=== PATIENT | male | born 1950 | race Caucasian/White ===

== ENCOUNTER 2023-03-13 09:03 | Day surgery (SDC) | payer MEDICARE, OTHER, SELFPAY ==
[2023-03-13] VITALS (7 sets, daily range): BP systolic 121–131; BP diastolic 68–83; PULSE 60–73; RESP 16; TEMP 36.6–37.1; O2SAT 94–97; BMI 42.9
--- NOTE | 2023-03-13 09:29 | SUR.PREOP ---
SAME DAY SURGERY LOCAL INJECTION SITE VERIFICATION WAS PERFORMED BY SURGEON/PA AND PATIENT PRIOR TO LOCAL ANESTHETIC BEING INJECTED TO OPERATIVE SITE.
[2023-03-13] MEDS: ETHYL CHLORIDE 1 APPLICATION 1 APPLIC TOPICAL (09:30)
[2023-03-13] MEDS: BUPIVACAINE 0.5% 30 ML INJECTION (09:30)
--- NOTE | 2023-03-13 10:21 | P.ORPRC_ITS ---
Procedure Note Date of procedure: 03/13/23 Procedure: PREOPERATIVE DIAGNOSIS: 1. Right carpal tunnel syndrome POSTOPERATIVE DIAGNOSIS: 1. Right carpal tunnel syndrome PROCEDURE: 1. Right open carpal tunnel release SURGEON: Rick Ulloa MD. DRIVEMATIC MACHINE OPERATOR: HUY Zee ANESTHESIA: Local anesthetic (50:50 mixture of 2% lidocaine with epi and 0.5% marcaine plain) - 10ml total IMPLANTS: None EBL: 2 mL TOURNIQUET: None COMPLICATIONS: None evident INDICATIONS: The patient is a pleasant 72yo Male who has experienced right hand numbess/tingling affecting the radial 3.5 digits for multiple months. It has progressively gotten worse. Nonoperative management has been tried and failed, and therefore surgery was recommended. DESCRIPTION OF PROCEDURE: Following a thorough discussion of risks, benefits, and alternatives consent was obtained and the operative extremity was marked. The patient was brought to the operating room and placed supine on the operating table. Local anesthesia induction was undertaken in preop holding. No antibiotics were administered as this was planned to be a local case only. Proper time-out was performed identifying proper patient, site, and procedure. The operative extremity was prepped and draped in the appropriate sterile fas hion using ChloraPrep. An incision was made in line with the radial border of the ring finger beginning 1 cm distal to the distal wrist crease and progressing for another 2.5cm distal. Caution was taken to stay proximal to Garcia's cardinal line. Sharp incision through the skin, subcutaneous tissue, and palmar fascia was performed. The thenar musculature was bluntly elevated off the transverse carpal ligament. The ligament was directly visualized, and divided sharply with a 15 blade. This was released from its most proximal to the most distal extent. Metzenbaum scissor was also utilized to release the fascia extension proximally. We confirmed complete release of the transverse carpal ligament. Closure was performed with 4-O nylon in interrupted fashion. Soft dressings were applied, and the patient was transferred to the recovery room in stable condition. PLAN: 1. Encourage elevation of the operative extremity. 2. Range of motion of the fingers and hand/wrist as tolerated. 3. Ibuprofen/acetaminophen and/or Percocet as needed for pain control. 4. Follow up with PA visit or nurse visit in 12-16 days for wound check and suture removal.
== END 2023-03-13 10:58 | disposition home or self-care (01) ==
PROVIDERS: PCP Family Medicine; Visit Provider Orthopaedic Surgery Sports Medicine
PROC: (CPT 64721; principal; 2023-03-13 10:30)
DX: G56.01 Carpal tunnel syndrome, right upper limb (principal)
CPT/HCPCS: 64721; J0665

== ENCOUNTER 2023-05-20 10:04 | Day surgery (SDC) | payer MEDICARE, OTHER, SELFPAY ==
[2023-05-20] VITALS (22 sets, daily range): BP systolic 106–182; BP diastolic 52–99; PULSE 52–93; RESP 14–18; TEMP 36.1–37.5; O2SAT 90–97; BMI 43.2
[2023-05-20] MEDS: ACETAMINOPHEN 500 MG TABLET 1000 MG PO ×3 (10:20→23:36)
[2023-05-20] MEDS: OXYCODONE (CR) 10 MG TAB.ER.12H PO (10:20)
[2023-05-20] MEDS: SODIUM CHLORIDE 0.9 % (FLUSH) 10 ML SYRINGE IVF (10:25)
[2023-05-20] MEDS: LACTATED RINGERS 1000 ML 1,000 ML 100 ML IV ×2 (10:25→13:04)
--- NOTE | 2023-05-20 11:15 | XR_ITS ---
Final Report Patient: DERIC RACHEL Facility:?[facility] Patient ID:?[id number] Site Patient ID:?[id number]. Site :?[id number] Study:?XRay Hip Right INTRAOP-05/20/2023 5:52:01 PM Ordering Physician:MAREK Final Report: Indication: Hip replacement surgery Technique: AP hip fluoroscopic image. Fluoroscopy time 73.2 seconds. Findings/Impression: Hardware from a right total hip arthroplasty is in satisfactory position. Dictated by Deric Gutierrez MD @ 05/24/2023 6:25:55 AM (Electronic Signature)
[2023-05-20] MEDS: fentaNYL 100 MCG/2 ML inj IVP (12:20)
[2023-05-20] MEDS: MIDAZOLAM HCL 1 MG/ML inj IVP (12:20)
--- NOTE | 2023-05-20 12:37 | SUR.PREOP ---
TIME?OUT:?1220 PT/bing RN/mihaela bermudez MDA?VERIFICATION?OF?SURGICAL?SITE,?PROCEDURE,?AND?CONSENT OBTAINED?PRIOR?TO?INVASIVE?PROCEDURE.
[2023-05-20] MEDS: CEFAZOLIN 2 GM in 0.9 % SODIUM CHLORIDE Mini-bag 100 ML IVPB ×2 (12:40→19:07)
--- NOTE | 2023-05-20 12:42 | XR_ITS ---
Final Report Patient: DERIC RACHEL Facility:?[facility] Patient ID:?[id number] Site Patient ID:?[id number]. Site :?[id number] Study:?XRay Hip Right POST OP-05/20/2023 5:53:30 PM Ordering Physician:MAREK Final Report: Indication: Postop Technique: AP hip centered pelvis and lateral view right hip Findings/Impression: Hardware from a right total hip arthroplasty is in satisfactory position. Bone alignment is normal. No sign of acute fracture. Postop changes are within normal limits. Dictated by Deric Gutierrez MD @ 05/24/2023 6:26:42 AM (Electronic Signature)
[2023-05-20] MEDS: TRANEXAMIC ACID 100 MG/ML INJ 1000 MG IV (12:45)
--- NOTE | 2023-05-20 13:07 | P.NB_ITS ---
Nerve Block Nerve Block Time Seen by Provider: 12:30 Date Seen: 05/20/23 Type of block requested by surgeon for post-operative analgesia: ZACHERY/LFCN Side: right Time out performed: Yes Verification of patient name: Yes Verification of date of : Yes Site marking: site marked Name of person performing procedure: Massimo Continuous monitoring Was continuous monitoring of O2 sat, B/P, cafeteria monitor, recorded every 15 minutes?: Yes Procedure Checklist: sterile prep, needles and gloves Ultrasound guided. Images saved: Yes Medications given in 5ml increments after negative aspiration: Ropivicaine %: 0.5 mL: 30 Needle gauge: 20 Decadron (mg): 10 Precedex (mcg): 25 Patient tolerated procedure well: Yes Additional comments: Needle noted below psoas tendon needle noted adjacent to LFCN Block Charges Block Charge (with Pro Fee): Other Periph Nerve Block Use of Ultrasound Machine for Block: Yes- US Guidance/pain block
--- NOTE | 2023-05-20 13:07 | W.ANESCHARGE ---
Anesthesia Charges Start Date/Time Anesthesia Start Date: 05/20/23 Anesthesia Start Time: 12:37 Stop Date/Time Anesthesia Stop Date: 05/20/23 Anesthesia Stop Time: 15:57 Summary Extremes of Age - Over 70 or under 1: MDA
--- NOTE | 2023-05-20 16:11 | PM.ORPRC ---
Procedure Note Date of procedure: 05/20/23 Procedure: PREOPERATIVE DIAGNOSIS: 1. Right hip osteoarthritis, severe, primary 2. Morbidly obese-BMI 43.3 POSTOPERATIVE DIAGNOSIS: 1. Right hip osteoarthritis, severe, primary 2. Morbidly obese-BMI 43.3 PROCEDURE: 1. Right total hip arthroplasty-anterior approach-modifier 22 (33% added time and difficulty for this right KIN due to patient's morbidly obese body habitus which required increased assistants and deeper/more numerous retractors 2. 43307 - intraoperative fluoroscopy up to 1 hour. SURGEON: Rick Ulloa MD. WEAVE ROOM SUPERVISOR: Gabo Orona PA-C; Stephanie Small PA-C - Of note, a skilled payroll human resources assistant was critical for this case to aid in patient positioning, tissue retraction, limb manipulation/positioning, and closure. ANESTHESIA: General endotracheal anesthetic EBL: 600 mL IMPLANTS: DePuy J&J uncemented total hip [place] cup size 52, hole eliminator, +4 neutral liner Actis stem, standard offset, size 5 +12 mm ceramic 36 mm head COMPLICATIONS: None evident INDICATIONS: The patient is a pleasant 73-year-old male who has experienced severe right hip pain and difficulty bearing weight. Workup included x-rays which revealed severe osteoarthrosis in the hip. Given the deformity, the dysfunction, and the pain, as well as the failure of nonoperative management, recommendation was made for surgery. FINDINGS: Full-thickness chondral loss diffusely throughout the femoral head and acetabulum. Abundant effusion upon entering the joint. Large soft tissue envelope making exposure and access for KIN implantation significantly difficult. DESCRIPTION OF PROCEDURE: Following a thorough discussion of risks, benefits, and alternatives consent was obtained and the right hip was marked. The patient was brought to the operating room and placed supine on the operating table. Induction of anesthesia was undertaken. 2 g IV Ancef and 1 g tranexamic acid was administered within 1 hr of incision preoperatively. Proper time-out was performed identifying proper patient, site, procedure. The operative extremity was prepped and draped in the appropriate sterile fashion using ChloraPrep after the patient was positioned on the [place] table with head in neutral alignment and all bony prominences well padded. C-arm fluoroscopic imaging was utilized to confirm proper pelvis rotation and position, and to get true AP films of both the contralateral left, and the affected right hip. This is for comparison. A longitudinal incision was made starting approximately 1 cm distal to the ASIS, and 3-4 cm lateral. The incision was extended distally aiming toward the lateral border the patella. Sharp incision through skin and bovie cautery through the subcutaneous tissue allowed identification of the TFL fascia. This was sharply divided, and the fascia bluntly released from the muscle fibers as we dissected medial. Upon coming to the medial border, we were able to retract the TFL laterally, and penetrated the deeper fascia and identify the crossing circumflex vessels. These were ligated/cauterized. The rectus was elevated from the capsule, and retractors placed laterally and medially along the femoral neck to help with visualization of the capsule. We then performed an inverted T capsulotomy. The capsule was tagged for later repair. Retractors were placed inside the capsule. The femoral neck was visualized after releasing medially down to the lesser trochanter, along the saddle laterally, and up onto the acetabulum. The femoral neck cut was made in line with our preoperative templating. The head was removed in a single piece, and sized. We turned our attention to acetabular preparation. Initially, the labrum was resected from around the perimeter, the pulvinar was excised, allowing us to visualize the false wall. We started the reaming with a 43 mm reamer. This was medialized down to the true wall. We then enlarged our reamers sequentially up to one size less than the selected cup size. We trialed at the same size and found it to have an excellent fit. The selected cup was then opened, inserted, and impacted in line with the goal of 40? of abduction, and 20-25? of anteversion. This was confirmed on C-arm fluoroscopic imaging to be in the appropriate/goal position. Once the cup was placed we placed a hole eliminator and a liner consistent with preop planning. Attention was turned to the femoral preparation. The limb was extended, externally rotated, and adducted. The posteromedial capsule was released, as retractors were placed allowing excellent access to the proximal femur. Initially a icebox worker was followed by canal finder followed by various broaches. We broached sequentially up to the size noted above, found it to have excellent rotational control, and trialing various heads and necks, revealed that appropriate neck offset, and the above noted head size provided the greatest stability, and episcopalian of length, and offset. C-arm fluoroscopic imaging confirmed position of the stem, as well as leg lengths, which were compared with the pre procedure all fluoroscopic images. Trial implants were removed, the real femoral stem inserted, as was the appropriate head. After reducing, the leg was placed through range of motion and stability was confirmed anterior, posterior, and lateral. A 3 min Betadine soak was then performed, and thorough irrigation with normal saline followed. Closure of the capsule was performed with #1 PDS. Bleeding was confirmed to be controlled at this stage, and the TFL fascia was closed with #0 strata fix. Subcutaneous, and subcuticular closure was performed with 2-0 Vicryl and 4-0 Monocryl, respectively. Dressings were applied, and the patient was awoken from anesthesia and transferred the PACU in stable condition. Multiple skilled assistants were critical for this case to aid in patient positioning, tissue retraction, acetabular and proximal femoral exposure, limb manipulation/positioning, dislocation/relocation, patient safety, and closure due to morbid obese body habitus. Again, 33% at the time and difficulty for this right KIN due to patient's morbidly obese body habitus requiring increased assistants and deeper/more numerous retractors. PLAN: 1. Weight bear as tolerated operative extremity. 2. 23 hr perioperative antibiotics. 3. Ice. 4. PT/OT consults for ambulation assistance/mobility education. 5. Social work consult for discharge planning. 6. DVT prophylaxis with at SCDs, Kike Cadet, and Xarelto x5 days followed by aspirin for a total of 1 month..
--- NOTE | 2023-05-20 16:27 | W.ANESCHARGE ---
Anesthesia Charges Start Date/Time Anesthesia Start Date: 05/20/23 Anesthesia Start Time: 12:37 Stop Date/Time Anesthesia Stop Date: 05/20/23 Anesthesia Stop Time: 15:57
[2023-05-20] MEDS: LACTATED RINGERS 1000 ML 1,000 ML 75 ML IV (17:59)
[2023-05-20] MEDS: OXYCODONE 5 MG TABLET PO ×2 (18:07→22:38)
--- NOTE | 2023-05-20 18:25 | P.IMCN_ITS ---
Date of Consult Patient: Queta Patient Consult date: 05/20/23 Requesting Physician: Orthopedics Primary Care Provider: Eli Lyon, DO Consult Narrative Reason for consult: Medical management of comorbidities Narrative: Deric Guillory is a 73 year old male who presented to the hospital today for an elective R KIN. There were no surgical or anesthetic complications noted during procedure. Patient's H&P reviewed, PCP is Dr. Lyon at [facility]. Past medical history significant for: JOSE, GERD, hyperlipidemia, essential hypertension, dilated aortic root. Recently had an extensive workup for dyspnea that was reassuring. History of blood clots: No Postoperative plan: Home with . Patient had a left KIN remotely with no complications. 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 - Neoplasm of unspecified behavior of digestive system (ICD-10) Abdominal aortic aneurysm ?I71.40 - Abdominal aortic aneurysm, without rupture, unspecified (ICD-10) GERD (gastroesophageal reflux disease) ?K21.9 - Gastro-esophageal reflux disease without esophagitis (ICD-10) JOSE (obstructive sleep apnea) ?G47.33 - Obstructive sleep apnea (adult) (pediatric) (ICD-10) Rupture of left proximal biceps tendon ?S46.212A - Strain of muscle, fascia and tendon of other parts of biceps, left arm, initial encounter (ICD-10) Neck pain on left side ?M54.2 - Cervicalgia (ICD-10) Surgical History (Updated 05/20/23 @ 18:52 by Jacqui Hennessy MD) History of total right hip replacement ?Z96.641 - Presence of right artificial hip joint (ICD-10) History of carpal tunnel release (03/13/23) ?Z98.890 - Other specified postprocedural states (ICD-10) History of excision of mass ?Z98.890 - Other specified postprocedural states (ICD-10) History of total left hip replacement (~2013) ?Z96.642 - Presence of left artificial hip joint (ICD-10) History of arthroscopy of right shoulder (05/18/05) ?Z98.890 - Other specified postprocedural states (ICD-10) Social History (Updated 03/12/23 @ 09:12 by Sharyn Leon ~ [facility], [facility]) Smoking Status: Never smoker Do you use any of these nicotine containing products: None Second hand tobacco smoke exposure: No How often do you have a drink containing alcohol: never AUDIT-C Alcohol total score: 0 Non-prescribed substance use: denies use Caffeine: Yes Meds Home Medications and Allergies Home Medications Medication Instructions Recorded Confirmed Type amlodipine 2.5 mg tablet 2.5 mg PO DAILY 03/12/23 05/20/23 History hydrochlorothiazide 25 mg tablet 25 mg PO DAILY 03/12/23 05/20/23 History mirtazapine 7.5 mg tablet 7.5 mg PO HS 03/12/23 05/20/23 History rosuvastatin 10 mg tablet 10 mg PO HS 03/12/23 05/20/23 History aspirin 81 mg tablet,delayed 81 mg PO DAILY 05/16/23 05/20/23 History release cholecalciferol (vitamin D3) 50 50 mcg PO DAILY 05/16/23 05/20/23 History mcg (2,000 unit) capsule cyanocobalamin (vitamin B-12) 1,000 mcg PO DAILY 05/16/23 05/20/23 History 1,000 mcg capsule gabapentin 300 mg capsule 300 mg PO HS 05/16/23 05/20/23 History omeprazole 20 mg capsule,delayed 20 mg PO DAILY 05/16/23 05/20/23 History release Allergies Allergy/AdvReac Type Severity Reaction Status Date / Time No Known Drug Allergies Allergy Verified 05/20/23 10:32 Exam Narrative: Exam Narrative: GEN: Alert and oriented, nontoxic, sitting comfortably in bed HEENT: EOMIs bilaterally, no scleral icterus CV: RRR, No concerning murmurs, rubs, no carotid bruits R: LCTA bilaterally without concerning wheezing, air movement adequate Skin: No concerning skin lesions or rashes on exposed skin Neuro: Nonfocal Psych: Appropriate Const: Vital Signs, click to edit/add: Vital Signs - 24 hr 05/20/23 10:33 05/20/23 12:19 05/20/23 12:25 Temperature 97.8 F Pulse Rate 72 64 63 Pulse Rate [Pulse Oximeter] Respiratory Rate 18 18 16 Blood Pressure 182/99 H 133/77 106/71 Blood Pressure [Le ft Arm] Pulse Oximetry 97 93 93 Oxygen Delivery Me thod Room Air Nasal Cannula Nasal Cannula Oxygen Flow Rate 2 4 05/20/23 15:53 05/20/23 16:00 05/20/23 16:05 Temperature 97.5 F L Pulse Rate 62 58 L 52 L Pulse Rate [Pulse Oximeter] Respiratory Rate 14 16 16 Blood Pressure 109/68 121/61 127/88 Blood Pressure [Le ft Arm] Pulse Oximetry 92 94 97 Oxygen Delivery Me thod OxyMask OxyMask OxyMask Oxygen Flow Rate 10 10 10 05/20/23 16:10 05/20/23 16:15 05/20/23 16:20 Temperature 97.4 F L Pulse Rate 53 L 57 L 61 Pulse Rate [Pulse Oximeter] Respiratory Rate 16 18 14 Blood Pressure 140/55 H 127/52 L 123/74 Blood Pressure [Le ft Arm] Pulse Oximetry 97 97 96 Oxygen Delivery Me thod OxyMask Room Air Room Air Oxygen Flow Rate 6 05/20/23 16:23 05/20/23 16:45 05/20/23 17:00 Temperature 97.4 F L 97.3 F L 97.0 F L Pulse Rate 65 Pulse Rate [Pulse Oximeter] 60 65 Respiratory Rate 18 14 14 Blood Pressure 138/82 Blood Pressure [Le ft Arm] 121/71 126/61 Pulse Oximetry 95 93 Oxygen Delivery Me thod Room Air Room Air Room Air Oxygen Flow Rate 05/20/23 17:15 Temperature 97.2 F L Pulse Rate Pulse Rate [Pulse Oximeter] 65 Respiratory Rate 16 Blood Pressure Blood Pressure [Le ft Arm] 128/63 Pulse Oximetry 91 Oxygen Delivery Me thod Room Air Oxygen Flow Rate Assessment and Plan Assessment and plan (1) History of total right hip replacement: Problem comment: - 05/20/2023Laila Status: Acute Plan - pain management and prophylaxis per orthopedic surgery team - continue home medications for comorbidities - anticipate routine postoperative course
[2023-05-20] MEDS: GABAPENTIN 300 MG CAPSULE PO (20:26)
[2023-05-20] MEDS: ROSUVASTATIN CALCIUM 10 MG TABLET PO (20:27)
[2023-05-20] MEDS: MIRTAZAPINE 15 MG TABLET 7.5 MG PO (20:27)
[2023-05-20] MEDS: SENNOSIDES 1 TAB TABLET 2 TAB PO (20:28)
--- NOTE | 2023-05-20 22:48 | PC.NURSE ---
Patient arrived to unit from surgery at 1630. Total right anterior hip performed. Patient vitally stable, no nausea and taking clear liquids well. Diet advanced as tolerated and able to eat a sandwhich for dinner. Voiding post-surgery WNL. Patient reported minor pain in hip and right knee. Pain adequately managed with PRN pain medications. Patient up with Ax1, GB and walker to bathroom. IV fluids stopped. IV ABX completed as ordered. Patient hard of hearing and wears CPAP at night. Nursing to continue to monitor.
[2023-05-21] MEDS: CEFAZOLIN 2 GM in 0.9 % SODIUM CHLORIDE Mini-bag 100 ML IVPB (02:59)
[2023-05-21 03:00] VITALS: BP 99/59; PULSE 78; RESP 18; TEMP 37.3; O2SAT 92
[2023-05-21] MEDS: SODIUM CHLORIDE 0.9 % (FLUSH) 10 ML SYRINGE IVF (03:00)
--- NOTE | 2023-05-21 04:28 | PC.NURSE ---
Shift note: Pt is doing well ambulating with A1, walker and GB. Alert and oriented. Tolerated regular diet well. Ice pack applied to the dressing site. Dressing appeared clean and dry. Pain level has been rated at 2. Vitally stable. Pt had adequate sleep.
[2023-05-21 06:29] LABS: Basophils Percent Auto 0.1 % (0.0-3.0); Hematocrit 36.2 % (37.0-53.0); Hemoglobin* 11.7 gm/dL (13.5-17.5); Immature Granulocytes Pct Auto 1.2 %; Lymphocytes Percent Auto 7.9 % (20-44); Mean Corpuscular HGB Conc 32 gm/dL (32-36); Mean Corpuscular Hemoglobin 28 pg (26-34); Mean Corpuscular Volume 88 fL (80-100); Monocytes Percent Auto 8.6 % (0.0-11.0); Neutrophils Percent Auto 82.2 % (42.0-72.0); Platelet Count* 210 K/uL (140-440); RDW Coefficient of Variation % 13.7 % (11.5-15.5); Red Blood Count 4.12 m/uL (4.30-5.90); White Blood Count* 10.57 K/uL (4.50-11.00)
[2023-05-21 06:30] LABS: Basophils Absolute Auto 0.01 K/uL (0.00-0.30); Immature Granulocytes Abs Auto 0.13 K/uL (0.00-0.30)
[2023-05-21 06:39] LABS: Slide Review Reflex No
[2023-05-21 06:43] LABS: Potassium* 4.6 mmol/L (3.6-5.1); Sodium* 134 mmol/L (135-149)
[2023-05-21 06:46] LABS: Blood Urea Nitrogen* 17 mg/dL (7-30); Creatinine* 0.9 mg/dL (0.5-1.5); Est. Creatinine Clearance* 57.23; Estimated Glomerular Filt Rate 90 ml/min
[2023-05-21] MEDS: ACETAMINOPHEN 500 MG TABLET 1000 MG PO (07:07)
[2023-05-21 07:26] VITALS: BP 134/73; PULSE 81; RESP 18; TEMP 37.5; O2SAT 92
[2023-05-21] MEDS: SENNOSIDES 1 TAB TABLET 2 TAB PO (08:20)
[2023-05-21] MEDS: OMEPRAZOLE 20 MG CAPSULE DR PO (08:21)
[2023-05-21] MEDS: OXYCODONE 5 MG TABLET PO (08:21)
[2023-05-21] MEDS: RIVAROXABAN 10 MG TABLET PO (08:22)
[2023-05-21] MEDS: hydroCHLOROthiazide 25 MG TABLET PO (08:22)
[2023-05-21] MEDS: AMLODIPINE 5 MG TABLET 2.5 MG PO (08:22)
--- NOTE | 2023-05-21 08:39 | PM.ORPN ---
Subjective Subjective Date Seen: 05/21/23 Principal diagnosis: Status postop day 1, right total hip arthroplasty - anterior approach Interval history: Patient reports doing well. No acute events over night. Is complaining of ipsilateral knee discomfort, acute on chronic, especially medial joint line and kneecap. His knees bother him more than his right hip. Right knee corticosteroid injection Dr. Rodriguez 4 years ago, minimal relief. Able to put full weight through the right lower extremity without significant knee pain. No give outs, give ways, or instability due to right knee pain. No significant pain at rest. Generalized pain managed with scheduled and PRN medications, ice. DVT prophylaxis: Rivaroxaban, bilateral knee high Kike stockings, SCDs, walking. Denies fevers, chills, aches, N/V, CP, SOB/QUIGLEY, or lightheadedness. No flatus to date. Ortho Exam Narrative Exam Narrative: -Patient appears comfortable in bed; no apparent acute distress -Alert and oriented times 3 -Operative hip swollen; soft tissues supple; no obvious erythema. No ecchymosis. Warmth appropriate -Surgical dressing clean, dry, intact; no obvious drainage, no erythematous streaking peripheral to the bandage. Abdominal pannus covers 70% of the bandage -Bilateral calves soft and supple; no significant swelling, edema, tenderness, erythema, discoloration, warmth, or palpable cords -2+ DP/PT pulses, intact dermatomes and myotomes distally (5/5 strength). No numbness about the lateral femoral cutaneous nerve distribution. Right Knee: Mild swelling, mild effusion; no ecchymosis, or erythema Moderate tender medial joint line Moderate tender medial tibial plateau Nontender lateral joint line No significant pain to palpation medial/lateral retinaculum Mild tender medial femoral condyle ROM testing limited due to position in bed, but gentle motion from 0-40 does not cause discomfort; no crepitus Octavio unable to perform in current position Stable to varus and valgus stress at 0 and 30? Symmetric quad activation 2+ DP/PT pulses, pink warm digits with brisk cap refill; intact dermatomes and myotomes distally including the common peroneal, tibial, saphenous, and sural nerve distributions Const Vital Signs, click to edit/add: Vital Signs - 24 hr 05/20/23 10:33 05/20/23 12:19 05/20/23 12:25 Temperature 97.8 F Pulse Rate 72 64 63 Pulse Rate [Pulse Oximeter] Respiratory Rate 18 18 16 Blood Pressure 182/99 H 133/77 106/71 Blood Pressure [Left Arm] Pulse Oximetry 97 93 93 Oxygen Delivery Method Room Air Nasal Cannula Nasal Cannula Oxygen Flow Rate 2 4 05/20/23 15:53 05/20/23 16:00 05/20/23 16:05 Temperature 97.5 F L Pulse Rate 62 58 L 52 L Pulse Rate [Pulse Oximeter] Respiratory Rate 14 16 16 Blood Pressure 109/68 121/61 127/88 Blood Pressure [Left Arm] Pulse Oximetry 92 94 97 Oxygen Delivery Method OxyMask OxyMask OxyMask Oxygen Flow Rate 10 10 10 05/20/23 16:10 05/20/23 16:15 05/20/23 16:20 Temperature 97.4 F L Pulse Rate 53 L 57 L 61 Pulse Rate [Pulse Oximeter] Respiratory Rate 16 18 14 Blood Pressure 140/55 H 127/52 L 123/74 Blood Pressure [Left Arm] Pulse Oximetry 97 97 96 Oxygen Delivery Method OxyMask Room Air Room Air Oxygen Flow Rate 6 05/20/23 16:23 05/20/23 16:30 05/20/23 16:45 Temperature 97.4 F L 96.9 F L 97.3 F L Pulse Rate 65 58 L Pulse Rate [Pulse Oximeter] 60 Respiratory Rate 18 14 14 Blood Pressure 138/82 Blood Pressure [Left Arm] 129/70 121/71 Pulse Oximetry 95 Oxygen Delivery Method Room Air Room Air Room Air Oxygen Flow Rate 05/20/23 17:00 05/20/23 17:15 05/20/23 17:30 Temperature 97.0 F L 97.2 F L 97.5 F L Pulse Rate Pulse Rate [Pulse Oximeter] 65 65 61 Respiratory Rate 14 16 16 Blood Pressure Blood Pressure [Left Arm] 126/61 128/63 142/74 H Pulse Oximetry 93 91 95 Oxygen Delivery Method Room Air Room Air Room Air Oxygen Flow Rate 05/20/23 18:00 05/20/23 18:30 05/20/23 19:30 Temperature 98.5 F 98.4 F Pulse Rate Pulse Rate [Pulse Oximeter] 64 85 87 Respiratory Rate 18 16 16 Blood Pressure Blood Pressure [Left Arm] 112/70 126/82 137/74 Pulse Oximetry 95 93 92 Oxygen Delivery Method Room Air Room Air Room Air Oxygen Flow Rate 05/20/23 20:30 05/20/23 21:30 05/20/23 22:30 Temperature 97.9 F Pulse Rate Pulse Rate [Pulse Oximeter] 93 87 Respiratory Rate 18 16 Blood Pressure Blood Pressure [Left Arm] 138/90 H 126/83 127/75 Pulse Oximetry 91 93 Oxygen Delivery Method Room Air Room Air Oxygen Flow Rate 05/20/23 23:00 05/20/23 23:00 05/21/23 03:00 Temperature 99.5 F 98.7 F 99.2 F Pulse Rate Pulse Rate [Pulse Oximeter] 88 88 78 Respiratory Rate 18 18 18 Blood Pressure Blood Pressure [Left Arm] 133/83 113/70 99/59 L Pulse Oximetry 93 90 92 Oxygen Delivery Method Room Air Room Air CPAP Oxygen Flow Rate 05/21/23 07:26 05/21/23 07:26 Temperature 99.5 F Pulse Rate Pulse Rate [Pulse Oximeter] 81 81 Respiratory Rate 18 18 Blood Pressure Blood Pressure [Left Arm] 134/73 Pulse Oximetry 92 Oxygen Delivery Method Room Air Oxygen Flow Rate Assessment and Plan Assessment and plan (1) History of total right hip replacement: Problem details: - 05/20/2023Laila Status: Acute (2) Right medial knee pain: Problem details: -Acute on chronic; low concern for fracture, likely osteoarthritic in nature. If this is not impair his weight-bearing and recovery from right total hip, will continue to follow. May consider corticosteroid injection next week in clinic if the knee pain is impairing his right hip recovery. X-rays of the right knee should proceed visit if knee continues to bother him. -will order three views of the right knee today prior to discharge Status: Acute Plan - Complete 23 hour perioperative antibiotics. - PT/OT consult for education and assistance. - Social work consult for discharge planning - Prescribed analgesics as needed - DVT prophylaxis: Rivaroxaban, bilateral knee high Kike Hose stockings and SCDs - Anticipation is for discharge to home with spouse 05/21/2023 if the patient remains medically stable, pain is controlled, and they are safe with mobilization.
--- NOTE | 2023-05-21 08:47 | XR_ITS ---
INDICATION: RIGHT KNEE PAIN. TECHNIQUE: THREE VIEWS RIGHT KNEE. FINDINGS: PATELLOFEMORAL SPURRING IS PRESENT. THERE IS A SMALL JOINT EFFUSION. MILD CHRONIC DISTAL QUADRICEPS TENDINOSIS. MEDIAL COMPARTMENT NARROWING AND SPURRING. CHONDROCALCINOSIS OF THE MENISCI. HYPERTROPHIC CHANGES AT THE LATERAL COMPARTMENT, TIBIAL SPINES AND INTERCONDYLAR NOTCH. NO FRACTURE. IMPRESSION: DEGENERATIVE JOINT DISEASE WITH CHONDROCALCINOSIS AND SMALL JOINT EFFUSION.
--- NOTE | 2023-05-21 08:54 | PC.NURSE ---
End of Shift: Patient pleasant and cooperative. Patient vitally stable, lungs clear, BS WNL, IV SL and intact. Patient rates pain 2/10, pain med given by next RN. Patient ambulating SBA with walker. Patient urinated this morning and tolerating regular diet. Patient right hip dressing C/D/I. Active ice applied.
== END 2023-05-21 10:43 | disposition home or self-care (01) ==
LOC: OR 10:05 → MEDSURG 10:05
PROVIDERS: PCP Family Medicine; Visit Provider Orthopaedic Surgery Sports Medicine
PROC: (CPT 27130; principal; 2023-05-20 11:15)
DX: M16.11 Unilateral primary osteoarthritis, right hip (principal); G89.18 Other acute postprocedural pain; E66.01 Morbid (severe) obesity due to excess calories; Z68.41 Body mass index [BMI] 40.0-44.9, adult; G47.33 Obstructive sleep apnea (adult) (pediatric); G89.29 Other chronic pain; M25.561 Pain in right knee; I10 Essential (primary) hypertension; K21.9 Gastro-esophageal reflux disease without esophagitis; I71.40 Abdominal aortic aneurysm, without rupture, unspecified
CPT/HCPCS: 27130; 01214; 36415; 64450; 73501; 73562; 76942; 82565; 84132; 84295; 84520; 85025; 97110; 97116; 97161; 97165; 97535; 99100; A9270; C1776; J0330; J0690; J1100; J2250; J2405; J2704; J2710; J2795; J3010; J7030; J7120

== ENCOUNTER 2023-06-24 09:00 | Outpatient (RCR) | payer MEDICARE, OTHER, SELFPAY ==
--- NOTE | 2023-05-16 11:01 | PT.OPEX ---
PT [place] Outpatient Eval PT [facility] Outpatient Eval Start: 05/16/23 09:06 Freq: Status: Active Protocol: Document 05/16/23 09:10 DAVID (Rec: 05/16/23 10:49 DAVID [id number]) E-signed By Brittany White DPT Physical Therapy Outpatient Evaluation Insurance Information Recert Due Date 08/14/23 Insurance Name Medicare B Medical Diagnosis R hip OA s/p R KIN 05/20/23 Treating Diagnosis R hip pain, impaired R hip ROM , impaired mobility/strength R hip/LE, limping/antalgic gait Subjective Subjective Patient reports chronic R hip pain leading up to R KIN scheduled for 05/20/23. He reports having L KIN about 10 years ago at [facility], posterior approach. He reports doing well after that surgery. He has a FWW and cane to use as needed after surgery. He has not been using an AD. 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 Patient has 5 stairs to enter the home, bilateral railing. Once inside he can stay on the main level. Spouse is available to assist as needed at home. Patient reports having cane, FWW, raised toilet seat, shower chair, walk in shower. Reports having R carpal tunnel release surgery about a month ago - some ongoing pain/sx and tenderness. Date of Last Physician Visit 04/16/23 Date of Surgery (If applicable) 05/20/23 Occupation farming Preferred Name Inderjit Precautions Treatment Precautions/Contraindications hx L KIN about 10 yrs ago s/p R carpal tunnel release about 1 month ago Assessment Assessment/Impression Patient is a 73 year old male with R hip pain, impaired R hip ROM, impaired mobility/ strength R hip/LE, limping/ antalgic gait. He is scheduled for R KIN 05/20/23. Patient seen in PT today for pre-op session to provide education/information on upcoming KIN surgery, safety information/HO, equipment instruction including use of FWW, and instruction in KIN exercises. Handouts issued for exercises, patient to perform them leading up to surgery. Reviewed PT/OT plan during hospital stay and patient is scheduled for OP PT post op. Spouse if available to assist patient at home. 5 stairs to enter the house with bilateral railings. Once inside, patient can stay on the main level. He has a cane , FWW, shower chair, raise toilet set to use after surgery. He has a walk in shower. Patient would benefit from skilled PT for pain/sx management, improved hip ROM, improved hip/LE mobility/ strength, improved gait, balance/proprioception training, and establishment of HEP. Plan of Care Rehabilitation Potential Good Physical Therapy Goals 1. Patient will be educated in KIN pre/post-op safety, mobility, and exercises with HOs provided within one visit with patient returning to PT for post op treatment after R KIN surgery on 05/20/23. PT goals will be updated to KIN rehab goals when patient returns post op. Coordination/Communication With Referral Source Treatment Plan/Direct Interventions Gait Training,Therapeutic Exercises Frequency/Duration 1/week Patient Will Be Discharged From Therapy Completion of LTG(s),Skills Plateau,Independent w/HEP, Independently Progressing Evaluation Billing Untimed Code Treatment Minutes 32 Complexity Moderate Certification Information Initial Certification Date 05/16/23 Ending Certification Date 08/14/23 Provider Signature Shows Agreement With POC & Medical Necessity Physician Signature & Date Requested Please Sign/Date Here Physician Comment/Change : Physician NPI Number #
== END 2023-10-22 23:59 | disposition home or self-care (01) ==
PROVIDERS: PCP Family Medicine; Visit Provider Orthopaedic Surgery Sports Medicine
DX: M16.11 Unilateral primary osteoarthritis, right hip (principal); Z96.641 Presence of right artificial hip joint; Z51.89 Encounter for other specified aftercare
CPT/HCPCS: 97110; 97162; 97164

== ENCOUNTER 2024-01-08 06:06 | Day surgery (SDC) | payer MEDICARE, OTHER, SELFPAY ==
[2024-01-08] VITALS (20 sets, daily range): BP systolic 101–131; BP diastolic 55–81; PULSE 52–64; RESP 16–18; TEMP 36.3–36.7; O2SAT 90–98; BMI 44.1
--- NOTE | 2024-01-08 | CRLHL7_ITS ---
For Patients: As a result of the Cures Act, medical imaging exams and procedure reports are released immediately into your electronic medical record. You may view this report before your referring provider. If you have questions, please contact your health care provider. Indication: RT TKA POST OP Technique: Two views right knee Findings/Impression: Hardware from a right total knee arthroplasty is in satisfactory position. Bone alignment is normal. No sign of acute fracture. Postop changes are within normal limits. Dictated by Deric Gutierrez MD @ 01/08/2024 10:57:32 AM (Electronically Signed)
--- OUTSIDE RECORDS SUMMARY | 2024-01-08 06:10 | XMS_ITS | Clinical Summary ---
Author Organization [facility] [employer] [facility] Address [place], [place] [address] Care Team Providers Care Audio Director Name Role Phone Eli Lyon DO Primary Care Provider [phone] Chance Galan MD Unavailable [phone] Allergies No known active allergies Medications Medication Sig Dispensed Refills Start Date End Date Status omega-3 fatty acids-vitamin E (FISH OIL) 1,000 mg cap Take 2 capsules by mouth. 0 3 Active cholecalciferol (VITAMIN D-3) 2,000 unit capsule Take 1 capsule by mouth once daily. 0 3 Active omeprazole 20 mg tablet Take 1 Tablet (20 mg) by mouth once daily before a meal. 90 Tablet 3 1 Active aspirin (ECOTRIN) 81 mg enteric coated tablet Take 1 Tablet by mouth once daily. Active diclofenac topical (VOLTAREN) 1 % gelIndications:Ost eoarthritis, unspecified osteoarthritis type, unspecified site Apply 2-4 g topically to affected area(s) four times daily. 350 g 1 3 Active cyanocobalamin (Vitamin B-12) 1,000 mcg tablet Take 1 Tablet (1,000 mcg) by mouth once daily. 90 Tablet 3 3 Active hydroCHLOROthiazid e (HCTZ) 25 mg tabletIndications: HTN (hypertension) Take 1 Tablet (25 mg) by mouth once daily. 90 Tablet 3 3 Active acetaminophen (TYLENOL EXTRA STRGTH) 500 mg tablet Take 1,000 mg by mouth every 6 hours if needed. Max acetaminophen dose: 4000mg in 24 hrs. Active CPAPIndications:OS A (obstructive sleep apnea) CPAP machine for home use at pressure 7-15, full face mask x1/3month with a full face cushion x1/mo 1 Each 11 4 Active mirtazapine (REMERON) 7.5 mg tabletIndications: Chronic insomnia Take 1 Tablet (7.5 mg) by mouth at bedtime. 90 Tablet 3 4 Active gabapentin (NEURONTIN) 300 mg capsuleIndications :PLMD (periodic limb movement disorder) Take 1 Capsule (300 mg) by mouth at bedtime. 90 Capsule 3 4 Active rosuvastatin (CRESTOR) 10 mg tabletIndications: Hyperlipidemia, unspecified hyperlipidemia type TAKE ONE TABLET BY MOUTH ONE TIME DAILY AT BEDTIME 90 Tablet 2 4 Active amLODIPine (NORVASC) 2.5 mg tabletIndications: HTN (hypertension) TAKE ONE TABLET BY MOUTH ONE TIME DAILY IN THE EVENING. 90 Tablet 1 4 Active amLODIPine (NORVASC) 2.5 mg tabletIndications: HTN (hypertension) Take 1 Tablet (2.5 mg) by mouth once daily in the evening. 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 Recommend repeat annually. US 10/2018 Stable ectasia of the abdominal aorta and common iliac arteries. Stable mild aneurysmal dilatation measuring 3.2 x 2.7 cm. US 06/2020 stable at 3.2 cm. US 08/2022 stable at 3.2, radiology recommend repeat in 3 years Esophageal dysmotility 08/29/2017 Overview (08/29/2017): On esophogram. Possible small zenker's diverticulum JOSE 08/26/2017 AHI-5, REM-21 08/22/2017 Personal history of colonic polyps 04/28/2013 Overview (07/28/2020): Colonoscopy 04/2013 normal repeat in 5 years Colonoscopy 07/2020 3 polyps, repeat in 5 years Pain in joint, pelvic region and thigh 3 PAIN IN JOINT, UNSPECIFIED SITE 12/13/2000 GERD Encounters Date Type Department Care Team Description 01/01/2024 Orders Only [facility] [address] [place] [address] Eli Lyon, 1 scan: (1-Ord) NFLD-EKG-12/31/23 12/31/2023 1:05 PM CDT Office Visit [facility] [address] [place] [address] Eli Lyon, Preoperative Exam (01/08/24 [facility] 12/31/2023 Travel 12/19/2023 Refill [facility] [address] [place] [address] Eli Lyon, Refill Request (Amlodipine) from Last 3 Months Immunizations Name Administration Dates Next Due COVID-19 vaccine (Tapastreet 30mcg/0.3mL) P F, MDV 08/02/2020,07/12/2020 Influenza A (H1N1), Inactivated 05/09/2009 Influenza A (H1N1), Inactivated (Age >=3 Years) 05/09/2009 Influenza, IIV4 (Age 6-35 Mos) 02/14/2013 Pneumococcal Poly,23-Valent (Pneumovax) 06/29/19 21 Pneumococcal conj 13-Valent (Prevnar 13) 018 Tdap 08/19/2022,05/16/2005 Zoster (Zostavax-ZVL, live) 12/30/2012 Family History Medical History Relation Name Comments Blood Disease Brother #1 Multiple myelo ma Cancer-colon Brother #1 colon, prostate , renal and multiple myeloma Cancer-prostate Brother #1 Good Health Sister 3 #1 Good Health Sister 4 #2 Good Health Sister 5 #3 Relation Name Status Comments Brother #1 (Age 77) Colon, kid perez, prostate cancer, multiple myelome Father (Age 60) esophageal cancer, chew tobacco Mother (Age 82) cancer, [place] Sister 1 (Age 64) lung ca Sister 2 (Age 69) COPD Sister 3 #1 Sister 4 #2 Sister 5 #3 Social History Tobacco Use Types Packs/Day Years Used Date Smoking Tobacco: Former Cigarettes 2 30 0 04/08/1966 - 04/08/1996 Smokeless Tobacco: Never Tobacco Cessation:Counseling Given: Not Answered Alcohol Use Standard Drinks/Week Comments Yes 1 (1 standard drink = 0.6 oz pur e alcohol) PHQ-2 Answer Date Recorded PHQ-2 TOTAL SCORE 3 07/31/2022 Social Connections Answer Date Recorded Frequency of Communication with Friends and Fami ly 0 03/28/2023 Financial Resource Strain Answer Date R ecorded Difficulty of Paying Living Expenses 3 03/28/2023 Difficulty of Paying Living Expenses Not on file 03/28/2023 Food Insecurity Answer Date Recorded Worried About Running Out of Food in the Last Ye ar 1 03/28/2023 Transportation Needs Answer Date Record ed Lack of Transportation (Medical) 1 03/28/2023 Housing Stability Answer Date Recorded Unable to Pay for Housing in the Last Year 1 03/28/2023 Sex and Gender Information Value Date Recorded Sex Assigned at Not on file Gender Identity Not on file Sexual Orientation Not on file Obstetrics History Last Filed Vital Signs Vital Sign Reading Time Taken Comments Blood Pressure 129/84 12/31/2023 12:59 PM CDT Pulse 78 12/31/2023 12:59 PM CDT Temperature 36.8 ??C (98.2 ??F) 05/08/2023 9:14 AM CS T Respiratory Rate 16 12/19/2017 1:43 PM CDT Oxygen Saturation 98% 12/31/2023 12:59 PM CDT Inhaled Oxygen Concentration - - Weight 120.2 kg (265 lb) 12/31/2023 12:59 PM CDT Height 165.1 cm (5' 5) 12/31/2023 12:59 PM CDT Body Mass Index 44.1 12/31/2023 12:59 PM CDT Plan of Treatment Upcoming Encounters Date Type Department Care Team (Late st Contact Info) Description 02/24/2024 10:00 AM EXTENSION ASSOCIATE Ancillary Procedure [facility] [address] [place] [address] Health Maintenance Due Date Last Done Comments Zoster (shingles) series for age 50+ (2 of 3) 02/24/2013 12/30/2012 Depression screening for age 12+ 08/01/2023 07/31/2022, 06/28/2020, 06/28/2020, Additional history exists Medicare Wellness for age 65+ 08/01/2023 07/31/2022 COVID-19 vaccine series ( season) 2023 08/02/2020, 07/12/2020 Influenza for age 65+ 12/08/2023 05/09/2009, 010 BMI (ht and wt on same day) for age 18+ 12/30/2024 12/31/2023, 06/18/2023, 05/08/2023, Additional history exists Colonoscopy through age 75 07/26/202507/26, 07/26/2020, 04/28/2013, Additional history exists Lipids for age 45-75 12/30/2028 12/31/2023, 09/11/2022, 06/27/2022, Additional history exists Tetanus booster 08/19/2032 08/19/2022, 05/16/2005 Hepatitis C screening for ag e 18-79 Completed 06/21/2004 Pneumococcal series for age 65+ Completed , 09/20/2017 AAA screening age 65-74 Completed 08/07/19, 07/07/2020, 10/16/2018, Additional history exists Tdap Completed 08/19/2022, 05/16/2005 Procedures Procedure Name Priority Date/Time Associated Diagnosis Comments CA READING EKG - NO CHARGE, COMP ONLY Routine 01/01/2024 11:42 AM CDT Pre-op exam HTN (hypertension) Hyperlipidemia, unspecified hyperlipidemia type EKG 12 LEAD Routine 01/01/2024 11:42 AM CDT Pre-op exam HTN (hypertension) Hyperlipidemia, unspecified hyperlipidemia type HEMOGLOBIN Routine 12/31/2023 1:37 PM CDT Pre-op exam LDL CHOLESTEROL,DIRECT Routine 12/31/2023 1:37 PM CDT Hyperlipidemia, unspecified hyperlipidemia type BASIC METABOLIC PANEL Routine 12/31/2023 1:37 PM CDT HTN (hypertension) US AORTA Routine 08/06/2022 7:46 AM CDT Abdominal aortic aneurysm (AAA) 3.0 cm to 5.5 cm in diameter in male COLONOSCOPY 07/26/2020 7:38 AM CDT EXPOSURE (BBF) ANTI HCV Routine 06/21/2004 9:58 AM EXTENSION ASSOCIATE from Last 3 Months or Most Recently Relevant to Health Maintenance Results * EKG 12 LEAD (01/01/2024 11:42 AM CDT) Eli Lyon DO EKG ORD * CA READING EKG - NO CHARGE, COMP ONLY (01/01/2024 11:42 AM CDT) Eli Lyon DO PB - PROVIDER READ INGS * HEMOGLOBIN (12/31/2023 1:37 PM CDT) HEMOGLOBIN 14.0 13.2 - 17.1 g/dL [facility] Blood BLOOD SPECIMEN / Unknown 12/31/2023 1:37 PM CDT 12/31/2023 1:37 PM CDT Eli Lyon DO HEMATOLOGY [facility] [address] [place] [address], [facility] [address] [place] [address] * LDL CHOLESTEROL,DIRECT (12/31/2023 1:37 PM CDT) DIRECT LDL 67 <100 mg/dL [facility] Comment: Desirable range <100 mg/dL for primary prevention; ?? <70 mg/dL for patients with CHD or diabetic patients with > or = 2 CHD risk factors. Blood BLOOD SPECIMEN / Unknown 12/31/2023 1:37 PM CDT 12/31/2023 1:37 PM CDT Eli Lyon DO CHEMISTRY Performing Organization Address City/[facility]/ZIP Co de Phone Number [facility] [place] [address] [place] [address], [facility] [address] [place] [address] * BASIC METABOLIC PANEL (12/31/2023 1:37 PM CDT) [facility] GLUCOSE 92 65 - 99 mg/dL [facility] Comment: ? Fasting reference interval UREA NITROGEN (BUN) 18 7 - 25 mg/dL [facility] CREATININE 0.94 0.70 - 1.28 mg/dL [facility] EGFR 86 > OR = 60 mL/min/1. 73m2 [facility] BUN/CREATININE RATIO SEE NOTE: 6 - 22 (calc) [facility] Comment: ?? Not Reported: BUN and Creatinine are within ?? reference range. ? SODIUM 140 135 - 146 mmol/L [facility] POTASSIUM 3.9 3.5 - 5.3 mmol/L [facility] CHLORIDE 102 98 - 110 mmol/L [facility] CARBON DIOXIDE 23 20 - 32 mmol/L [facility] ELECTROLYTE BALANCE 15 7 - 17 mmol/L (calc) [facility] CALCIUM 9.4 8.6 - 10.3 mg/dL [facility] Blood BLOOD SPECIMEN / Unknown 12/31/2023 1:37 PM CDT 12/31/2023 1:37 PM CDT Eli Lyon DO CHEMISTRY [facility] [address] [place] [address], [facility] [address] * US AORTA (08/06/2022 7:46 AM CDT) Anatomical Region Laterality Modality Abdomen, AORTA Ultrasound 08/06/2022 9:12 AM CDT Narrative 08/06/2022 9:12 AM CDT For Patients: ??As a result of the Cures Act, medical imaging exams and procedure reports are released immediately into your electronic medical record. ??You may view this report before your referring provider. ??If you have questions, please contact your health care provider. Examination: US abdominal aorta Indication: Follow-up aneurysm Technique: Willis scale and color Doppler images of the aorta and common iliac arteries are obtained. Comparison: 07/07/2020 Findings: Proximal aorta: 3.2 x 3.1 cm, previously measuring 3.2 x 2.7 cm. Mid aorta: 2.7 x 2.4 cm Distal aorta: 2.8 x 2.5 cm Right common iliac artery: 1.6 x 1.3 cm Left common iliac artery: 1.4 x 1.3 cm Recommended imaging interval for ectatic aorta: 3.0-3.4 cm: 3 years Impression: Similar size of proximal aortic aneurysm measuring 3.2 cm. Dictated by Deric Gutierrez MD @ May ??1 2022 ??9:12AM (Electronically Signed) ?? Procedure Note Deric Gutierrez MD - 08/06/2022 For Patients: As a result of the Cures Act, medical imagingexams and procedure reports are released immediately into your electronicmedical record. You may view this report before your referring provider.If you have questions, please contact your health care provider. Examination: US abdominal aorta Indication: Follow-up aneurysm Technique: Willis scale and color Doppler images of the aorta and common iliac arteriesare obtained. Comparison: 07/07/2020 Findings: Proximal aorta: 3.2 x 3.1 cm, previously measuring 3.2 x 2.7 cm. Mid aorta: 2.7 x 2.4 cm Distal aorta: 2.8 x 2.5 cm Right common iliac artery: 1.6 x 1.3 cm Left common iliac artery: 1.4 x 1.3 cm Recommended imaging interval for ectatic aorta: 3.0-3.4 cm: 3 years Impression: Similar size of proximal aortic aneurysm measuring 3.2 cm. Dictated by Deric Gutierrez MD @ Aug 06 2022 9:12AM (Electronically Signed) Eli Lyon DO US * COLONOSCOPY (07/26/2020 7:38 AM CDT) 07/26/2020 7:38 AM CDT Narrative Transcriptions Harjinder Narayanan MD - 07/26/2020 8:35 AM CDT Patient Name: Deric Guillory Procedure Date: 07/26/2020 Gender: Male Date of : 1950 Admit Type: Outpatient Procedure: Colonoscopy Proceduralist: Harjinder Narayanan MD , Cindy Wild RN(Nurse) Indications/Pre-Op Diagnosis: Surveillance: Personal history ofadenomatous polyps on last colonoscopy > 5 years ago,Last colonoscopy: April 2013 Medications: Fentanyl 100 micrograms IV, Midazolam 2 mgIV, The level of sedation administered wasmoderate Procedure Description: The patient had risks, benefits and alternatives explained to andgave informed consent. The patient had a stable cardiopulmonary status and judged an adequate candidate for conscious sedation. The [id number] was passed through the anus and advanced tothe cecum, identified by appendiceal orifice and ileocecal valve. The colonoscopy was performed without difficulty. The patient toleratedthe procedure well. The quality of the bowel preparation was good. The ileocecal valve, appendiceal orifice, and rectum were photographed. Complications: No immediate complications. Estimated Blood Loss & Specimen: Estimated blood loss: none. Specimen collected - Yes and sent to Laboratory Findings: The perianal and digital rectal examinations were normal. Three sessile polyps were found in the descending colon. The polypswere 3 to 5 mm in size. These polyps were removed with a cold snare. Resection was complete, but the polyp tissue was only partially retrieved. The exam was otherwise without abnormality on direct and retroflexion views. Impressions/Post-Op Diagnosis: - Three 3 to 5 mm polyps in the descending colon, removed with a cold snare. Complete resection. Partial retrieval. - The examination was otherwise normal on direct and retroflexionviews. Recommendation: - Patient has a contact number available for emergencies. The signsand symptoms of potential delayed complications were discussed with the patient. Return to normal activities tomorrow. Written discharge instructions were provided to the patient. - Resume previous diet. - Continue present medications. - Await pathology results. - Repeat colonoscopy is recommended. The colonoscopy date will be determined after pathology results from today's exam become available for review. Moderate Sedation: Moderate (conscious) sedation was administered by the endoscopy nurse and supervised by the endoscopist. The following parameters were monitored: oxygen saturation, heart rate, respiratory rate, blood pressure, adequacy of pulmonary ventilation and reponse to care. Please refer to the patient's medical record flowsheets and nursing notes for moderate sedation details. Total physician intraservice time was 18 minutes. Harjinder Narayanan MD 07/26/2020 8:35:24 AM This report has been signed electronically. Note Initiated On: 07/26/2020 7:38 AM Procedure Code(s): --- Professional --- 45048, Colonoscopy, flexible; with removalof tumor(s), polyp(s), or other lesion(s) bysnare technique Diagnosis Code(s): --- Professional --- Z86.010, Personal history of colonicpolyps K63.5, Polyp of colon CPT copyright 2019 [employer]. All rights reserved. The codes documented in this report are preliminary and upon medical social consultant reviewmay be revised to meet current compliance requirements. Scope In: 8:11:57 AM Scope Withdrawal Time 0 hours 12 minutes 10 seconds Scope Out: 8:27:25 AM Harjinder Narayanan MD PROCEDURE ORD * PATIENT SOURCE ANTI HCV (06/21/2004 9:58 AM EXTENSION ASSOCIATE) SOURCE ANTI HCV Non-reacti ve [facility] 06/21/2004 9:58 AM EXTENSION ASSOCIATE 06/21/2004 12:32 PM EXTENSION ASSOCIATE Narrative [facility] - 06/23/2004 11:06 AM EXTENSION ASSOCIATE Testing Performed By [place], [place] Doctor Unknown SEND OUTS [facility] [address] [place] [address] from Last 3 Months or Most Recently Relevant to Health Maintenance Care Teams Audio Director Relationship Specialty Start Date End Date Eli Lyon DO [address] [place] [address] PCP - General Family Practice 12/29/12 Chance Galan MD [address] [place] [address] Orthopedics Surgery - Orthopedics 12/30/12
[2024-01-08] MEDS: ACETAMINOPHEN 500 MG TABLET 1000 MG PO (06:46)
[2024-01-08] MEDS: LACTATED RINGERS 1000 ML 1,000 ML 100 ML IV ×2 (06:47→12:29)
[2024-01-08] MEDS: SODIUM CHLORIDE 0.9 % (FLUSH) 10 ML SYRINGE IVF (06:47)
[2024-01-08] MEDS: OXYCODONE (CR) 10 MG TAB.ER.12H PO (06:47)
--- NOTE | 2024-01-08 07:01 | SUR.PREOP ---
TIME?OUT:?0715 PT/RN/MDA?VERIFICATION?OF?SURGICAL?SITE Right Knee,?PROCEDURE Nerve Block ,?AND?CONSENT OBTAINED?PRIOR?TO?INVASIVE?PROCEDURE.
[2024-01-08] MEDS: MIDAZOLAM HCL 1 MG/ML inj IVP (07:15)
[2024-01-08] MEDS: fentaNYL 100 MCG/2 ML inj IVP (07:15)
--- NOTE | 2024-01-08 07:19 | W.PM.H&PU ---
History & Physical Update History & Physical Update H&P Reviewed and patient assessed: No changes noted
[2024-01-08] MEDS: CEFAZOLIN 2 GM in 0.9 % SODIUM CHLORIDE Mini-bag 100 ML IVPB (07:33)
[2024-01-08] MEDS: TRANEXAMIC ACID 100 MG/ML INJ 1000 MG IV (07:34)
--- NOTE | 2024-01-08 07:37 | P.ANES_ITS ---
Anesthesia Charges Start Date/Time Anesthesia Start Date: 01/08/24 Anesthesia Start Time: 07:22 Stop Date/Time Anesthesia Stop Date: 01/08/24 Anesthesia Stop Time: 09:27 Summary Extremes of Age - Over 70 or under 1: PATIENT FINANCIAL COORDINATOR
--- NOTE | 2024-01-08 08:54 | P.ORPRC_ITS ---
Procedure Note Date of procedure: 01/08/24 Procedure: PREOPERATIVE DIAGNOSIS: 1. Right knee osteoarthritis, primary, severe POSTOPERATIVE DIAGNOSIS: 1. Right knee osteoarthritis, primary, severe PROCEDURE: 1. Right total knee arthroplasty - subvastus SURGEON: Rick Ulloa MD. FIELD CANE SCALER: HUY Zee - Of note, a skilled dairy and food laboratory assistant was critical for this case to aid in patient positioning, tissue retraction, limb manipulation/positioning, and closure. ANESTHESIA: Spinal anesthetic IMPLANTS: DePuy J&J all cemented TKA - Attune PS femur size 7, size 6 tibia, 5 mm poly spacer, 38 mm patella TOURNIQUET: 90 min at 300 torr EBL: 50 ml COMPLICATIONS: None evident INDICATIONS: The patient is a pleasant 73-year-old male who has experienced severe right knee pain and difficulty bearing weight. Workup included x-rays which revealed severe osteoarthrosis in the knee. Given the deformity, the dysfunction, and the pain, as well as the failure of nonoperative management, recommendation was made for surgery. FINDINGS: Full-thickness chondral loss diffusely throughout the medial and patellofemoral compartments. To lesser degree lateral compartment. Large effusion upon entering the joint. Degenerative medial and lateral meniscus tearing. DESCRIPTION OF PROCEDURE: Following a thorough discussion of risks, benefits, and alternatives consent was obtained and the right knee was marked. The patient was brought to the operating room and placed supine on the operating table. Induction of anesthesia was undertaken. 3 g IV Ancef and 1 g tranexamic acid was administered within 1 hr of incision preoperatively. Proper time-out was performed identifying proper patient, site, procedure. The operative extremity was prepped and draped in the appropriate sterile fashion using ChloraPrep after the patient was positioned supine with all bony prominences well padded. A longitudinal, anterior, midline skin incision was made starting approximately 3cm proximal to the superior pole of the patella and advanced distal to the tibial tubercle. A subvastus approach was utilized. A medial subperiosteal sleeve was created with knife, boyer elevator and curved osteotome. The retropatellar fatpad was resected and the synovium in the suprapatellar pouch excised to visualize the anterior femoral cortex. Femoral preparation was performed via an intramedullary guide. Step drill allowed access into the femoral canal. The distal cutting guide was placed with 5? of valgus and 11 mm cut on the distal femur due to a 7 degree flexion contracture. Femur was sized using a anterior referencing guide in 3? of ext ernal rotation. This found have a best fit with the sizing noted above. The 4 in 1 cutting block was then placed, and the distal femur shaped accordingly. The box cut was then created and the trial implant inserted to confirm appropriate fit. We turned our attention to the proximal tibia. Extramedullary guide was utilized for cutting with the goal of being 90 degree cut from the mechanical ax is of the tibia in the varus/valgus plane utilizing tibial crest as the primary alignment. Initially a 2 mm resection was performed from the medial tibial plateau. Ultimately, balancing was achieved in both flexion and extension in both varus and valgus. The knee was able to achieve full extension as well comfortably. The patella was initially measured and found have a thickness of 25 mm. It was resected back to approximately 14.5 mm. It was sized to be a best fit with as noted above. This was drilled, trial placed. All trials were placed and found to have an excellent stability and balance. At this stage, trial implants were removed, the knee was thoroughly irrigated with normal saline, and the cement was mixed. After irrigation, the knee was thoroughly dried, and cement placed, with the real tibial and femoral implants placed along with the patella. Trial poly spacer was placed and confirmed to have excellent range of motion and full extension, and the real poly spacer opened and inserted. All extra cement was removed, and a 3 min Betadine soak performed. Finally, a final irrigation round with normal saline was performed. Closure performed with 0 Vicryl and #0 Stratafix for the quad tendon/retinaculum. 2-0 Vicryl for the subcutaneous and 4-0 Stratafix for subcuticular closure. Dressings were applied and the patient was awoken from anesthesia after the tourniquet deflated and transferred the PACU in stable condition. A skilled dairy and food laboratory assistant was critical for this case to aid in patient positioning, tissue retraction, bone exposure, limb manipulation/positioning, patient safety, and closure. PLAN: 1. Weight bear as tolerated operative extremity. 2. 23 hr perioperative antibiotics. 3. Ice. 4. PT/OT consults for ambulation assistance/mobility education. 5. Social work consult for discharge planning. 6. DVT prophylaxis with at SCDs and aspirin twice daily.
--- NOTE | 2024-01-08 10:59 | W.ANESCHARGE ---
Anesthesia Charges Start Date/Time Anesthesia Start Date: 01/08/24 Anesthesia Start Time: 07:22 Stop Date/Time Anesthesia Stop Date: 01/08/24 Anesthesia Stop Time: 09:27 Summary Extremes of Age - Over 70 or under 1: MDA
--- NOTE | 2024-01-08 11:00 | P.NB_ITS ---
Nerve Block Nerve Block Time Seen by Provider: 07:18 Date Seen: 01/08/24 Type of block requested by surgeon for post-operative analgesia: geniculars Side: right Time out performed: Yes Verification of patient name: Yes Verification of date of : Yes Site marking: site marked Name of person performing procedure: Massimo Continuous monitoring Was continuous monitoring of O2 sat, B/P, demonstrator sewing techniques, recorded every 15 minutes?: Yes Procedure Checklist: sterile prep, needles and gloves Medications given in 5ml increments after negative aspiration: Ropivicaine %: 0.5 mL: 9 Needle gauge: 25 Patient tolerated procedure well: Yes Block Charges Block Charge (with Pro Fee): Genicular Nerve Block Use of Ultrasound Machine for Block: No
--- NOTE | 2024-01-08 11:00 | W.PM.NB ---
Nerve Block Nerve Block Time Seen by Provider: 07:18 Date Seen: 01/08/24 Type of block requested by surgeon for post-operative analgesia: adductor canal Side: right Time out performed: Yes Verification of patient name: Yes Verification of date of : Yes Site marking: site marked Name of person performing procedure: Massimo Continuous monitoring Was continuous monitoring of O2 sat, B/P, macaroni maker, recorded every 15 minutes?: Yes Procedure Checklist: sterile prep, needles and gloves Ultrasound guided. Images saved: Yes Medications given in 5ml increments after negative aspiration: Ropivicaine %: 0.5 mL: 20 Needle gauge: 20 Decadron (mg): 10 Precedex (mcg): 25 Patient tolerated procedure well: Yes Additional comments: Needle noted adjacent to nerve Block Charges Block Charge (with Pro Fee): Femoral Nerve Use of Ultrasound Machine for Block: Yes- US Guidance/pain block
== END 2024-01-08 13:25 | disposition home or self-care (01) ==
PROVIDERS: PCP Family Medicine; Visit Provider Orthopaedic Surgery Sports Medicine
PROC: (CPT 27447; principal; 2024-01-08 07:15)
DX: M17.11 Unilateral primary osteoarthritis, right knee (principal); G89.18 Other acute postprocedural pain; Z68.41 Body mass index [BMI] 40.0-44.9, adult; E66.01 Morbid (severe) obesity due to excess calories; I71.40 Abdominal aortic aneurysm, without rupture, unspecified
CPT/HCPCS: 27447; 01402; 64447; 64454; 73560; 76942; 97110; 97116; 97162; 99100; A9270; C1776; J0690; J1100; J2250; J2371; J2405; J2704; J2795; J3010; J7120

== ENCOUNTER 2024-02-17 08:30 | Outpatient (RCR) | payer MEDICARE, OTHER, SELFPAY ==
--- NOTE | 2024-02-17 09:08 | PT.OPDNX ---
PT [facility] Daily Note PT [facility] Daily Note Start: 01/02/24 09:12 Freq: Status: Active Protocol: Document 02/17/24 08:44 NLR (Rec: 02/17/24 09:08 NLR [id number]) E-signed By Skylar Patterson DPT PT OP Daily Progress Note Visit Information Note Type Discharge Note Visit Number [id number] Insurance Information Recert Due Date 04/01/24 Insurance Name Medicare B,Other; See Comments Insurance Information/Comments All State supplement Medical Diagnosis M17.11 Unilateral primary osteoarthrtis right knee Z96.651 Presence of right artificial knee joint Treating Diagnosis M25.561 Pain right knee M25.661 Stiffness right knee Imaging Report Information 05/21/23 X-ray: IMPRESSION: RIGHT KNEE DEGENERATIVE JOINT DISEASE WITH CHONDROCALCINOSIS AND SMALL JOINT EFFUSION. Referring MD Rick Ulloa MD Subjective Preferred Name INDERJIT Jansen reports he feels ready for DC. 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 He does get some pain on the lateral side of his right knee on occasion. Pain Comments 0-04/17 Date of Last Physician Visit 01/23/24 Date of Next Physician Visit 02/18/24 Date of Surgery (If applicable) 01/08/24 Precautions Treatment Precautions/Contraindications R TKA Protocol Weight Bearing Status Full Weight Bearing Home Exercise Home Exercise Comments Reviewed and finalized HEP today. Access Code: [email or web address] URL: [email or web address] Date: 02/17/2024 Prepared by: Skylar Vasquez Exercises - Active Straight Leg Raise with Quad Set - 2-3 x daily - 7 x weekly - 1-2 sets - 10 reps - 2-3 second hold - strength exercise type - Seated Knee Extension Stretch with Chair - 2-3 x daily - 7 x weekly - 1-2 reps - 20-60 second hold - range of motion exercise type - Seated Knee Flexion Stretch - 2-3 x daily - 7 x weekly - 1-2 reps - 20-60 second hold - range of motion/stretch exercise type - Seated Long Arc Quad - 2-3 x daily - 7 x weekly - 1-2 sets - 10 reps - 2-3 second hold - strength exercise type - Seated Hamstring Stretch - 1-2 x daily - 7 x weekly - 1-2 reps - 30-60 s hold - stretch exercise type - Achilles Tendon/Calf Stretches - 1-2 x daily - 5-7 x weekly - 1-2 reps - 30-90 second hold - stretch exercise type - Controlled Step Up - 1-2 x daily - 5-7 x weekly - 2 sets - 10 reps - 2-3 second hold - strength exercise type - Controlled Forward Step Down - 1-2 x daily - 5-7 x weekly - 2 sets - 10 reps - 2-3 second hold - strength exercise type - Mini Squat with Counter Support - 1 x daily - 5-7 x weekly - 2 sets - 10 reps - 2- 3 second hold - strength exercise type - Single Leg Balance in March Position - 1-2 x daily - 5-7 x weekly - 1-2 reps - 20-60 second hold - strength/balance exercise type Objective Other/Pertinent Objective ROM: R knee 01/23/24 5-125 with mild overpressure in sitting (L knee is 4-125) Patient Instructed in Risks/Benefits Yes Therapeutic Exercise Therapeutic Exercise Minutes (minutes) 30 Therapeutic Exercise: To Restore - Recumbent bike 8' seat 6 Functional Status level 4 - able to make full revolutions - Trial of supine ITB stretch, unable to achieve stretch - Seated hamstring stretch - reviewed - Reviewed and finalized HEP Treatment Minutes Timed Code Treatment Minutes 30 Total Treatment Time 30 Billing Units Therapeutic Exercise Units 2 Assessment/Impression Assessment/Impression Inderjit continues to progress with overall knee pain improving. He continues to work on knee extension and is approaching symmetry to L knee at 5-125. He is having so occasional R posterolateral knee pain when working that appears to be lateral hamstring tightness. He has had hamstring stretches in his program all along, but reviewed the importance of doing them regularly to improve hamstring flexibility to be symmetrical to L. He reports he feels ready to discontinue skilled care and continue his program on his own. He sees Dr. Ulloa tomorrow for follow up. Goals have been achieved. Plan of Care Physical Therapy Goals 1. Patient will be independent with home exercise program as instructed, modified and progressed by physical therapist in order to be independently and actively participating in their rehabilitation and return to prior level of function. Goal to be achieved by 03/31/2024. 2. Patient will demonstrate ability to walk for 60 minutes (s) without significant increase in pain greater than 2/10 to allow patient to be able to safely and independently return to participation in desired level of function with daily activities such going to appointments, participating in desired recreational activities, walking for exercise without pain or difficulty. Goal to be achieved by 03/31/2024. 3. Patient will ascend/descend 2 full flight(s) of stairs with [id number] pattern without significant increase in difficulty or pain over 2/ 10 allowing for safe and independent mobility through their home/work environment. Goal to be achieved by 2023. [ End ] Daily Plan of Care Discharge Daily Plan of Care Comments DC with HEP. Discharge Note Discharge Summary Inderjit continues to progress with overall knee pain improving. He continues to work on knee extension and is approaching symmetry to L knee at 5-125. He is having so occasional R posterolateral knee pain when working that appears to be lateral hamstring tightness. He has had hamstring stretches in his program all along, but reviewed the importance of doing them regularly to improve hamstring flexibility to be symmetrical to L. He reports he feels ready to discontinue skilled care and continue his program on his own. He sees Dr. Ulloa tomorrow for follow up. Goals have been achieved. Date of First Visit for Therapy 01/02/24 Date of Last Visit for Therapy 02/17/24 Initial Primary Functional Limitations Difficulty walking, doing stairs, standing. Initial Pain Level 10/10 Pain Level at Discharge 0-1/10 Recommendations/Reason for Discharge Met All Therapy Goals Discharge Instructions Continue HEP. Thank You For This Referral Thank you for this physical therapy referral. Discharge is attached. Signature not required. Contact us if you have any questions or concerns by phone at [phone] or by fax at [phone] attn: Skylar Patterson, PT, DPT.
== END 2024-03-04 16:56 | disposition home or self-care (01) ==
PROVIDERS: PCP Family Medicine; Visit Provider Orthopaedic Surgery Sports Medicine
DX: M17.11 Unilateral primary osteoarthritis, right knee (principal); Z96.651 Presence of right artificial knee joint; M25.561 Pain in right knee; M25.661 Stiffness of right knee, not elsewhere classified; Z51.89 Encounter for other specified aftercare
CPT/HCPCS: 97110; 97116; 97140; 97161; 97164

== ENCOUNTER 2024-10-03 13:43 | Emergency (ER) | payer OTHER, MEDICARE, SELFPAY ==
[2024-10-03] VITALS (9 sets, daily range): BP systolic 134–166; BP diastolic 83–97; PULSE 86–104; RESP 0–20; TEMP 37.1; O2SAT 94–98; BMI 44.5
--- OUTSIDE RECORDS SUMMARY | 2024-10-03 13:45 | XMS_ITS | Clinical Summary ---
Author Organization [facility] Address [facility] [place] [address] Care Team Providers Care Sustainability Specialist Name Role Phone Sonali Eli Lara DO Primary Care Provider [phone] Chance Galan MD Unavailable Allergies No known active allergies Medications omega-3 fatty acids-vitamin E (FISH OIL) 1,000 mg cap Take 2 capsules by mouth. 0 01/28/20 13 Active cholecalciferol (VITAMIN D-3) 2,000 unit capsule Take 1 capsule by mouth once daily. 0 01/28/20 13 Active omeprazole 20 mg tablet Take 1 Tablet (20 mg) by mouth once daily before a meal. 90 Tablet 3 06/29/19 21 Active aspirin (ECOTRIN) 81 mg enteric coated tablet Take 1 Tablet by mouth once daily. Active diclofenac topical (VOLTAREN) 1 % gelIndications:Os teoarthritis, unspecified osteoarthritis type, unspecified site Apply 2-4 g topically to affected area(s) four times daily. 350 g 1 08/01/19 23 Active cyanocobalamin (Vitamin B-12) 1,000 mcg tablet Take 1 Tablet (1,000 mcg) by mouth once daily. 90 Tablet 3 09/12/19 23 Active acetaminophen (TYLENOL EXTRA STRGTH) 500 mg tablet Take 1,000 mg by mouth every 6 hours if needed. Max acetaminophen dose: 4000mg in 24 hrs. Active CPAPIndications:O SA (obstructive sleep apnea) CPAP machine for home use at pressure 7-15, full face mask x1/3month with a full face cushion x1/mo 1 Each 11 06/18/19 24 Active rosuvastatin (CRESTOR) 10 mg tabletIndications :Hyperlipidemia, unspecified hyperlipidemia type TAKE ONE TABLET BY MOUTH ONE TIME DAILY AT BEDTIME 90 Tablet 1 05/06/19 25 Active hydroCHLOROthiazi de 25 mg tabletIndications :HTN (hypertension) TAKE ONE TABLET BY MOUTH ONE TIME DAILY 90 Tablet 1 05/15/19 25 Active amLODIPine (NORVASC) 2.5 mg tabletIndications :HTN (hypertension) TAKE ONE TABLET BY MOUTH ONE TIME DAILY IN THE EVENING. 90 Tablet 1 06/23/19 25 Active mirtazapine 7.5 mg tabletIndications :Chronic insomnia Take 1 Tablet (7.5 mg) by mouth at bedtime. 90 Tablet 08/18/19 25 Active gabapentin 300 mg capsuleIndication s:PLMD (periodic limb movement disorder) Take 1 Capsule (300 mg) by mouth at bedtime. 90 Capsule 09/12/19 25 Active gabapentin (NEURONTIN) 300 mg capsuleIndication s:PLMD (periodic limb movement disorder) Take 1 Capsule (300 mg) by mouth at bedtime. 90 Capsule 3 06/18/19 24 025 Discontin ued(Reord er (E-cancel not sent)) Active Problems Problem Noted Date Diagnosed Date [...] Encounters Date Type Department Care Team Description 09/10/2024 Refill [facility] [address] [place] [address] Cristian Johnson MD Refill Request (Gabapentin 300mg) 08/14/2024 Refill [facility] [address] [place] [address] Cristian Johnson MD Refill Request (Mirtazapine Oral tablet 7.5mg ) from Last 3 Months Immunizations Immunization Administration Dates Next Due COVID-19 vaccine (Zuffle 30mcg/0.3mL) P FMDV 08/02/2020,07/12/2020 Influenza A (H1N1), Inactivated 05/09/2009 Influenza [...] 3 07/31/2022 Social Connections Answer Date Recorded Do you often feel lonely or isolated from those around you? 0 03/28/2023 Financial Resource Strain Answer Date R ecorded Difficulty of Paying Living Expenses 3 03/28/2023 Difficulty of Paying Living Expenses Not on file 03/28/2023 Food Insecurity Answer Date Recorded Do you worry your food will run out before you are able to buy more? 1 03/28/2023 Transportation Needs Answer Date Record ed Does lack of transportation keep you from medica l appointments? 1 03/28/2023 Does lack of transportation keep you from work, meetings or getting things that you need? 1 03/28/2023 Housing Stability Answer Date Recorded What is your housing situation today? 1 03/28/2023 Utilities Answer Date Recorded Do you have trouble paying f or utilities (for example, heat, electricity, water, phone)? 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 Not on file Not on file Not on fi le Obstetrics History Last Filed Vital Signs Vital Sign Reading Time Taken Comments Blood Pressure 129/84 12/31/2023 12:59 PM CDT Pulse 78 12/31/2023 12:59 PM CDT Temperature 36.8 C (98.2 F) 05/08/2023 9:14 AM MANUFACTURING CLERK Respiratory Rate 16 12/19/2017 1:43 PM CDT Oxygen Saturation 98% 12/31/2023 12:59 PM CDT Inhaled Oxygen Concentration - - Weight 120.2 kg (265 lb) 12/31/2023 12:59 PM CDT Height 165.1 cm (5' 5) 12/31/2023 12:59 PM CDT Body Mass Index 44.1 12/31/2023 12:59 PM CDT Plan of Treatment Upcoming Encounters Date Type Department Care Team (Late st Contact Info) Description 12/02/2024 8:30 AM CDT Office Visit [facility] [address] [place] [address] Cristian Johnson MD [address] [place] [address] Health Maintenance Due Date Last Done Comments RSV vaccine for adults or (1 - Risk 60-74 years 1-dose series) 2010 Zoster (shingles) series for age 50+ (2 of 3) 02/24/2013 12/30/2012 Depression screening for age 12+ 08/01/2023 07/31/2022, 06/28/2020, 06/28/2020, Additional history exists Medicare Wellness for age 65+ 08/01/2023 07/31/2022 COVID-19 vaccine series ( season) 2023 08/02/2020, 07/12/2020 Influenza Vaccine (Season Ended) 2024 02/14/2013 BMI (ht and wt on same day) for age 18+ 12/30/2024 12/31/2023, 06/18/2023, 05/08/2023, Additional history exists Colonoscopy through age 75 07/26/202507/26, 07/26/2020, 04/28/2013, Additional history exists Lipids for age 45-75 12/30/2028 12/31/2023, 09/11/2022, 06/27/2022, Additional history exists Tetanus booster 08/19/2032 08/19/2022, 05/16/2005 Hepatitis C screening for age 18-79 Completed 06/21/2004 Pneumococcal series for age 50+ Completed 06/28/2020, 09/20/2017 AAA screening age 65-74 Completed 08/07/19, 07/07/2020, 10/16/2018, Additional history exists Tdap Completed 08/19/2022, 05/16/2005 Hepatitis B series for 19+ Aged Out N o longer eligible based on patient's age to complete this topic Procedures Procedure Name Priority Date/Time Associated Diagnosis Comments LDL CHOLESTEROL,DIRECT Routine 12/31/2023 1:37 PM CDT Hyperlipidemia, unspecified hyperlipidemia type US AORTA Routine 08/06/2022 7:46 AM CDT Abdominal aortic aneurysm (AAA) 3.0 cm to 5.5 cm in diameter in male COLONOSCOPY 07/26/2020 7:38 AM CDT EXPOSURE (BBF) ANTI HCV Routine 06/21/2004 9:58 AM MANUFACTURING CLERK from Last 3 Months or Most Recently Relevant to Health Maintenance Results * LDL CHOLESTEROL,DIRECT (12/31/2023 1:37 PM CDT) DIRECT LDL 67 <100 mg/dL [facility] Comment: Desirable range <100 mg/dL for primary prevention; <70 mg/dL for patients with CHD or diabetic patients with > or = 2 CHD risk factors. Blood BLOOD SPECIMEN / Unknown 12/31/2023 1:37 PM CDT 12/31/2023 1:37 PM CDT us Eli Lyon DO CHEMISTRY Final Resu lt [facility] [address] [place] [address], [facility] [address] [place] [address] * US AORTA (08/06/2022 7:46 AM CDT) Anatomical Region Laterality Modality Abdomen, AORTA Ultrasound 08/06/2022 9:12 AM CDT Narrative 08/06/2022 9:12 AM CDT For Patients: As a result of the 21st Century Cures Act, medical imaging exams and procedure reports are released immediately into your electronic medical record. You may view this report before your referring provider. If you have questions, please contact your health [...] @ Aug 06 2022 9:12AM (Electronically Signed) Procedure Note Deric Gutierrez MD - 08/06/2022 [...] @ Aug 06 2022 9:12AM (Electronically Signed) us Eli Lyon DO US Final Resu lt * COLONOSCOPY (07/26/2020 7:38 AM CDT) 07/26/2020 [...] an adequate candidate for conscious sedation. The [id number] was passed through the anus and advanced [...] 7:38 AM Procedure Code(s): --- Professional --- 86689, Colonoscopy, flexible; with removalof tumor(s), polyp(s), or other lesion(s) bysnare technique Diagnosis Code(s): --- Professional --- Z86.010, Personal history of colonicpolyps K63.5, Polyp of colon CPT copyright 2019 [employer]. All rights reserved. The codes documented in this report are preliminary and upon spring tester reviewmay be revised to meet current compliance requirements. Scope In: 8:11:57 AM Scope Withdrawal Time 0 hours 12 minutes 10 seconds Scope Out: 8:27:25 AM us Harjinder Narayanan MD PROCEDURE ORD Final Res ult * PATIENT SOURCE ANTI HCV (06/21/2004 9:58 AM MANUFACTURING CLERK) SOURCE ANTI HCV Non-reacti ve [facility] 06/21/2004 9:58 AM MANUFACTURING CLERK 06/21/2004 12:32 PM MANUFACTURING CLERK Narrative [facility] - 06/23/2004 11:06 AM MANUFACTURING CLERK Testing Performed By [place], [place] Doctor Unknown SEND OUTS Final Result [facility] [address] [place] [address] from Last 3 Months or Most Recently Relevant to Health Maintenance Insurance MEDICARE PART B HB ONLY MEDICARE PB ONLY COMMERCIAL Care Teams Sustainability Specialist Relationship Specialty Start Date End Date Eli Lyon DO [address] [place] [address] PCP - General Family Practice 12/29/12 Chance Galan MD [address] [place] [address] Orthopedics Surgery - Orthopedics 12/30/12
--- NOTE | 2024-10-03 13:52 | CRLHL7_ITS ---
For Patients: As a result of the Century Cures Act, medical imaging exams and procedure reports are released immediately into your electronic medical record. You may view this report before your referring provider. If you have questions, please contact your health care provider. Indication: Trauma. Technique: Noncontrast CT images of the cervical spine. Comparison: None. Findings: Straightening of the cervical lordosis. Mild rightward cervical curvature. Vertebral body heights are maintained. No acute fracture, spondylolisthesis, or traumatic subluxation. Multilevel posterior disc osteophyte complexes contribute to low-grade spinal canal narrowing. Advanced disc height loss at C6-7. Multilevel uncinate spurring and facet arthropathy contributing to advanced neural foraminal stenosis bilaterally C3-4, bilaterally C4-5, right C5-6, and left C6-7. Impression: 1. No acute fracture or traumatic subluxation. 2. Multilevel cervical spondylosis. Please note that all CT scans at this facility use dose modulation, iterative reconstruction, and/or weight-based dosing when appropriate to reduce radiation dose to as low as reasonably achievable. Dictated by Pepe Engel MD @ 10/03/2024 2:52:53 PM (Electronically Signed)
--- NOTE | 2024-10-03 13:52 | CRLHL7_ITS ---
For Patients: As a result of the Century Cures Act, medical imaging exams and procedure reports are released immediately into your electronic medical record. You may view this report before your referring provider. If you have questions, please contact your health care provider. Indication: Trauma. Technique: Noncontrast CT images of the brain. Comparison: None. Findings: Mild diffuse cerebral volume loss. No mass effect or midline shift. Allen-white differentiation is maintained. No acute intracranial hemorrhage or pathologic extra-axial fluid collection. Intracranial atherosclerotic calcifications. Suggested mild chronic microvascular ischemic changes Globes are symmetric. Calvarium is intact. Mild paranasal sinus mucosal thickening. Mastoid air cells are clear. Impression: No acute intracranial hemorrhage or mass effect. Please note that all CT scans at this facility use dose modulation, iterative reconstruction, and/or weight-based dosing when appropriate to reduce radiation dose to as low as reasonably achievable. Dictated by Pepe Engel MD @ 10/03/2024 2:50:07 PM (Electronically Signed)
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
[2024-10-03 14:03] LABS: Basophils Absolute Auto 0.04 K/uL (0.00-0.30); Basophils Percent Auto 0.5 % (0.0-3.0); Eosinophils Absolute Auto 0.32 K/uL (0.00-0.50); Eosinophils Percent Auto 3.8 % (0.0-7.0); Hematocrit 44.1 % (37.0-53.0); Hemoglobin* 14.5 gm/dL (13.5-17.5); Immature Granulocytes Abs Auto 0.02 K/uL (0.00-0.30); Immature Granulocytes Pct Auto 0.2 %; Lymphocytes Percent Auto 22.7 % (20-44); Mean Corpuscular HGB Conc 33 gm/dL (32-36); Mean Corpuscular Hemoglobin 29 pg (26-34); Mean Corpuscular Volume 87 fL (80-100); Monocytes Percent Auto 10.1 % (0.0-11.0); Neutrophils Absolute Auto 5.25 K/uL (1.7-7.0); Neutrophils Percent Auto 62.7 % (42.0-72.0); Platelet Count* 220 K/uL (140-440); RDW Coefficient of Variation % 14.4 % (11.5-15.5); Red Blood Count 5.07 m/uL (4.30-5.90); White Blood Count* 8.38 K/uL (4.50-11.00)
[2024-10-03 14:04] LABS: Slide Review Reflex No
[2024-10-03 14:18] LABS: Albumin* 4.9 g/dL (3.3-5.0); Chloride* 102 mmol/L (96-114); Sodium* 139 mmol/L (135-149)
[2024-10-03 14:19] LABS: Potassium* 3.7 mmol/L (3.6-5.1)
[2024-10-03 14:21] LABS: Alanine Aminotransferase* 32 U/L (4-50); Alkaline Phosphatase* 69 U/L (40-150); Anion Gap 14 mEq/L (7-15); Aspartate Amino Transferase* 38 U/L (12-35); Bilirubin Total* 0.8 mg/dL (0.1-1.5); Blood Urea Nitrogen* 21 mg/dL (7-30); Carbon Dioxide* 23 mmol/L (20-32); Creatinine* 1.1 mg/dL (0.5-1.5); Est. Creatinine Clearance* 49.33; Estimated Glomerular Filt Rate 70 ml/min
[2024-10-03 14:22] LABS: Calcium* 9.6 mg/dL (8.4-10.6); Glucose* 112 mg/dL (60-115); Total Protein* 8.4 g/dL (6.0-8.3)
[2024-10-03 14:38] LABS: Troponin I* < 0.01 ng/mL (0.01-0.04)
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
[2024-10-03] MEDS: TETANUS/DIPHTH/PERTUSSIS 0.5 ML SYRINGE IM (16:08)
[2024-10-03 16:15] LABS: Appearance Urine Slightly Cloudy (Clear); Bilirubin Urine Negative (Negative); Blood Urine Negative (Negative); Color Urine Yellow (Yellow); Glucose Urine Negative (Negative); Ketones Urine Trace (Negative); Leukocyte Esterase Urine Negative (Negative); Nitrite Urine Negative (Negative); Protein Urine Trace (Negative); Urobilinogen Urine 0.2 (0.2-1.0); pH Urine 5.5 (5.0-8.5)
[2024-10-03 16:22] LABS: Amorphous Sediment Urine Few; Bacteria Urine Moderate; Squamous Epithelial Cell Urine Few (None-Few); WBC Urine 0-2 (0-5)
[2024-10-03 16:23] LABS: Hyaline Casts Urine Moderate (None-Few); Mucus Urine Many
== END 2024-10-03 16:15 | disposition home or self-care (01) ==
PROVIDERS: Emergency Provider Internal Medicine; PCP Family Medicine
DX: S00.01XA Abrasion of scalp, initial encounter (principal); S20.212A Contusion of left front wall of thorax, initial encounter; S80.02XA Contusion of left knee, initial encounter; R41.3 Other amnesia; V86.55XA Driver of 3- or 4- wheeled all-terrain vehicle (ATV) injured in nontraffic accident, initial encounter
CPT/HCPCS: 36415; 70450; 71250; 72125; 73562; 74176; 80053; 81001; 81003; 84484; 85025; 87086; 90471; 90715; 93005; 99283; 99284; 99285; 99291; G0390